=== PATIENT | male | born 1990 | race Two or more races ===

== ENCOUNTER 2021-11-22 05:25 | Day surgery (SDC) | payer BC, MEDICAID ==
[2021-11-11 16:11] LABS: BASOPHILS # (AUTO) 0.1 X10'3 (0-0.2); BASOPHILS % (AUTO) 0.8 % (0-1); EOSINOPHILS # (AUTO) 0.3 X10'3 (0-0.9); EOSINOPHILS % (AUTO) 3.3 % (0-6); LYMPHOCYTES # (AUTO) 2.6 X10'3 (1.1-4.8); LYMPHOCYTES % (AUTO) 31.8 % (21-51); MEAN CORPUSCULAR HEMOGLOBIN 30.8 PG (27.0-31.0); MEAN CORPUSCULAR HGB CONC 34.6 g/dL (33.0-36.5); MEAN CORPUSCULAR VOLUME 88.9 FL (78-98); MEAN PLATELET VOLUME 7.8 FL (7.4-10.4); MONOCYTES # (AUTO) 0.7 X10'3 (0-0.9); MONOCYTES % (AUTO) 8.8 % (2-12); NEUTROPHILS # (AUTO) 4.5 X10'3 (1.8-7.7); NEUTROPHILS % (AUTO) 55.3 % (42-75); PRE OP HEMATOCRIT 44.3 % (42.0-52.0); PRE OP HEMOGLOBIN 15.3 g/dL (14.0-17.9); PRE OP PLATELET COUNT 204 X10'3 (140-440); RED BLOOD COUNT 4.98 X10'6 (4.70-6.10); RED CELL DISTRIBUTION WIDTH 13.1 % (11.5-14.5)
[2021-11-11 16:31] LABS: ALBUMIN 4.1 G/DL (3.4-5.0); ALBUMIN/GLOBULIN RATIO 1.3 (1.1-1.5); ALKALINE PHOSPHATASE 67 IU/L (46-116); BLOOD UREA NITROGEN 17 MG/DL (7-18); BUN/CREATININE RATIO 16.7 (5.4-32.0); CALCIUM 8.5 MG/DL (8.5-10.1); CHLORIDE 105 MMOL/L (99-107); CREATININE 1.02 MG/DL (0.60-1.10); PRE OP ALT 29 U/L (30-65); PRE OP ANION GAP 7 (8-16); PRE OP BILIRUB, TOTAL 0.4 MG/DL (0.0-1.0); PRE OP SODIUM 139 MMOL/L (135-145); TOTAL CARBON DIOXIDE 27.3 MMOL/L (24-32); TOTAL PROTEIN 7.2 G/DL (6.4-8.2); eGFR 85 ML/MIN
[2021-11-11 16:35] LABS: PRE OP GLUCOSE 110 MG/DL (70-104); PRE OP POTASSIUM 4.1 MMOL/L (3.4-5.1)
[2021-11-11 16:41] LABS: PRE OP AST 14 U/L (10-37)
[~2021-11-22] VITALS: Ht 185.4 cm; Wt 86.6 kg
[~2021-11-22 05:25] MED LIST: NO HOME MEDS; ringers solution, lacted 1,000 ML IV SCH
[2021-11-22] MEDS ORDERED: cefazolin/dext.iso 2gm/50ml IV ONE (05:30)
[2021-11-22] MEDS ORDERED: famotidine 20mg tablet PO ONE (05:30)
[2021-11-22] MEDS ORDERED: LIDOcaine 0.5% W/epiNEPHrine 1:200,000 50ml vial IJ ONE (06:47)
[2021-11-22] MEDS ORDERED: ketorolac trometh. 30mg/ml inj. ONE (06:48)
[2021-11-22] MEDS ORDERED: BUPIVAcaine 0.5% inj/PF 60 ML ONE (06:48)
[2021-11-22] MEDS ORDERED: ondansetron/PF 4mg/2ml inj ONE (07:20)
[2021-11-22] MEDS ORDERED: sevoflurane 250ml liquid IH ONE (07:20)
[2021-11-22] MEDS ORDERED: fentaNYL /PF 50mcg/ml 5ml ampule ONE (07:25)
[2021-11-22] MEDS ORDERED: midazolam 1 mg/ML 2ml injection ONE (07:25)
[2021-11-22] MEDS ORDERED: propofol inj 20 ML IV ONE (07:26)
[2021-11-22] MEDS ORDERED: LIDOcaine 2% (20mg/ml) 5ml vial ONE (07:26)
[2021-11-22 07:38] VITALS: BP 130/72
[2021-11-22 07:40] VITALS: BP 130/72
[2021-11-22] MEDS ORDERED: LIDOcaine 1% w/epiNEPHrine 1:200,000 30ml vial IJ ONE (08:20)
[2021-11-22] MEDS ORDERED: BUPIVAcaine 0.5% inj/PF 30 ml vial IJ ONE ×2 (08:20→08:30)
[2021-11-22] MEDS ORDERED: dexamethasone sod phosphate 4mg/ml inj. ONE (08:22)
[2021-11-22] MEDS ORDERED: LIDOcaine 1%/PF 5ML 10 MG/ML VIAL IJ ONE (08:30)
[2021-11-22] MEDS ORDERED: HYDROcodone/acetaminophen 10/325mg tab PO PRN (08:30)
[2021-11-22 08:35] VITALS: BP 153/62
[2021-11-22] MEDS ORDERED: ondansetron/PF 4mg/2ml inj IV PRN (08:35)
[2021-11-22] MEDS ORDERED: morphine 4 MG/ML inj SYRINge IV PRN (08:35)
[2021-11-22] MEDS ORDERED: proCHLORperazine 10 MG/2 ml inj IV PRN (08:35)
[2021-11-22] MEDS ORDERED: morphine 2 MG/ML inj. syringe IV PRN (08:35)
[2021-11-22] MEDS ORDERED: ringers solution, lacted 1,000 ML IV SCH (08:35)
[2021-11-22] MEDS ORDERED: meperidine/PF 25mg/ml syringe IV PRN ×3 (08:35)
--- NOTE | 2021-11-22 08:35 | NUR ---
Received from OR via , accompanied by Anesthesiologist DR DAS and report given by Anesthesiolgist. PT SLEEPING BUT AROUSES TO VOICE, SKIN WARM AND PINK, RIGHT KNEE DRESSING COVERED BY SIMON WRAP CD, NO C/O PAIN, VSS, PIV RIGHT HAND 20G PATENT.
[2021-11-22 08:45] VITALS: BP 131/89
[2021-11-22 08:55] VITALS: BP 135/68
[2021-11-22 09:05] VITALS: BP 130/65
--- NOTE | 2021-11-22 09:05 | NUR ---
PT MEETS DISCHARGE CRITERIA, IV DISCONTINUED, NO C/O PAIN, DISCHARGE INSTRUCTIONS REVIEWED WITH PT AND SO. LOPEZ TO CAR VIA W/C. PT VERBALIZED UNDERSTANDING OF DISCHARGE INSTRUCTIONS.
== END 2021-11-22 09:05 | disposition home or self-care (01) ==
LOC: PAS 05:25
PROVIDERS: ATTEND Orthopaedic Surgery
DX: M22.8X1 Other disorders of patella, right knee (principal); Z79.899 Other long term (current) drug therapy; Z98.890 Other specified postprocedural states; Z72.89 Other problems related to lifestyle; Z20.822 Contact with and (suspected) exposure to COVID-19
CPT/HCPCS: 29877; 36415; 80053; 82948; 85025; J0690; J1100; J1885; J2250; J2405; J2704; J3010; J3490; J7120; S0020; U0003; U0005; Z7506; Z7508; Z7512; A4215; A4618; A6449; A7000